=== PATIENT | male | born 1940 | race Caucasian/White ===

== ENCOUNTER 2019-12-16 12:13 | Emergency (ER) | payer MEDICARE ==
[~2019-12-16] VITALS: Ht 177.8 cm; Wt 122.0 kg
[2019-12-16 12:25] VITALS: BP 160/73
[2019-12-16] MEDS ORDERED: ASPIRIN 325 MG TABLET PO ONE (12:30)
--- NOTE | 2019-12-16 12:48 | RAD ---
PORTABLE CHEST 1V History: Reason: SOA / Spl. Instructions: / History: Comparison: None. Findings: No consolidation or pleural effusion. Normal heart size. No pneumothorax. Prior median sternotomy. Bilateral glenohumeral DJD. Impression: 1. No acute cardiopulmonary process. Electronically signed by: Chong Dixon DO (12/16/2019 12:45 PM) [id number]
--- NOTE | 2019-12-16 12:56 | PHYS DOC ---
Past History Past Medical History: CAD, COPD, Hypertension Past Surgical History: Coronary Bypass Surgery, Other Additional Past Surgical Histo: knees Alcohol Use: None General Adult EDM: Chief Complaint: SHORTNESS OF BREATH HPI: HPI: Marina Patel is an 79-year-old male with an extensive cardiac history who presents with shortness of breath. He states that this is been a chronic issue for him that was worse this morning. 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 He denies lower extremity swelling, fever, chills, headache, palpitations, abdominal pain, nausea, vomiting, and bowel and urinary complaints. Patient affirms intermittent chest pain that does not feel similar to his past myocardial infarction history. Patient affirms history of 2 prior MIs with stent placement, and a procedure that placed 6 bypasses in 1999. He follows with a wood turning lathe operator twice every year who has asked him if he thought that he needed oxygen. While he states that he has felt that he needs oxygen for some time now he has told the provider know because he does not want the burden of the treatment. The patient states that he takes an unknown diuretic, likely Lasix, every morning. He is good about taking this medication every day. He denies significant change in weight. Patient denies smoking history. Review of Systems: Review of Systems: Constitutional: Denies fever, chills, and weight change Eyes: Denies redness or eye pain HENT: Denies nasal congestion or sore throat Respiratory: Denies cough; affirms shortness of breath Cardiovascular: Denies palpitations; affirms chest pain GI: Denies abdominal pain, nausea, or vomiting : Denies dysuria or hematuria Musculoskeletal: Denies back pain or joint pain Integument: Denies rash or skin lesions Neurologic: Denies headache, focal weakness or sensory changes Complete systems were reviewed and found to be within normal limits, except as documented in this note. Heart Score: HEART Score for Chest Pain: HEART Score for Chest Pain Response (Comments) Value History Moderately Suspicious 1 ECG Normal 0 Age > 65 2 Risk Factors >3 Risk Factors or Hx CAD 2 Total 5 Risk Factors: Risk Factors: DM, Current or recent (<one month) smoker, HTN, HLP, family history of CAD, obesity. Risk Scores: Score 0 - 3: 2.5% MACE over next 6 weeks - Discharge Home Score 4 - 6: 20.3% MACE over next 6 weeks - Admit for Clinical Observation Score 7 - 10: 72.7% MACE over next 6 weeks - Early Invasive Strategies Current Medications: Current Meds: Current Medications Medications (Trade) Dose Ordered Sig/Elvin Start Time Stop Time Status Last Admin Dose Admin Aspirin (Aj Aspirin) 325 mg 1X ONCE 12/16/19 12:30 12/16/19 12:31 DC Allergies: Allergies: Allergies Coded Allergies Type Severity Reaction Last Updated Verified No Known Drug Allergies 12/16/19 No Physical Exam: PE: Constitutional: Well developed, well nourished, no acute distress, non-toxic appearance HENT: Normocephalic, atraumatic Eyes: PERRL, EOMI, conjunctiva normal, no discharge Neck: Normal range of motion, no tenderness, supple Cardiac: Regular rate rhythm, no murmur Lungs & Thorax: No respiratory distress, equal chest rise and fall, coarse breath sounds in lower lung cook bilaterally Abdomen: Soft, no tenderness Skin: Warm, dry, no erythema, no rash Back: No tenderness, no CVA tenderness Extremities: No tenderness, ROM intact, 1+ lower extremity edema Neurologic: Alert and oriented X 3, normal motor function, normal sensory fu nction, no focal deficits noted Psychologic: Affect normal, judgment normal Current Patient Data: Vital Signs: Vital Signs Date Time Temp Pulse Resp B/P (MAP) Pulse Ox O2 Delivery O2 Flow Rate FiO2 12/16/19 12:25 98.2 78 16 160/73 (102) 95 Room Air EKG: EKG: @ 12:42 Sinus rhythm at [address] elevation or depression T waves are inconsistent, but do not appear pathologic Frequent PVCs Radiology/Procedures: Radiology/Procedures: PORTABLE CHEST 1V History: Reason: SOA / Spl. Instructions: / History: Comparison: None. Findings: No consolidation or pleural effusion. Normal heart size. No pneumothorax. Prior median sternotomy. Bilateral glenohumeral DJD. Impression: 1. No acute cardiopulmonary process. Electronically signed by: Chong Dixon DO (12/16/2019 12:45 PM) [id number] Course & Med Decision Making: Course & Med Decision Making Pertinent Labs and Imaging studies reviewed. (See chart for details) [] Dragon Disclaimer: Dragon Disclaimer: This electronic medical record was generated, in whole or in part, using a voice recognition dictation system. Departure Departure: Impression: Primary Impression: Dyspnea Qualified Codes: R06.00 - Dyspnea, unspecified Disposition: HOME/RESIDENCE PRIOR TO ADM Condition: STABLE Referrals: MIGUEL VAN MD (PCP) Patient Instructions: Shortness of Breath, [id number] Additional Instructions: You have been tested for or diagnosed with COVID-19. It is an infection caused by a new type of coronavirus. COVID-19 will cause cold-like or mild flu symptoms in most. It can cause more severe symptoms like problems breathing in some. There is no treatment for COVID-19. The body will clear the infection over time. Self-care will help to ease discomfort. Steps to Take: Self-Care Rest as needed. Healthy habits may help you feel better. Steps include: Choose healthy foods including fruits and vegetables. Drink water throughout the day. Get plenty of sleep each night. If you smoke, try to quit. It may ease breathing. Avoid alcohol. Keep Others Healthy The virus can spread to others. Droplets are released every time you sneeze or cough. The droplets can get into the mouth, nose, or eyes of people near you and lead to infection. To lower the chances of spreading COVID-19 to others: Stay at home until your doctor has said it is safe to leave. If you tested positive this will mean staying isolated until both of the following are true: At least 7 days have passed since the start of illness. You are free of fever for at least 72 hours without the use of medicine. During this time: - Avoid public areas, events, or transportation. Do not return to work or school until your doctor has said it is safe to do so. - Call ahead if you need to go to a medical center. Let them know you may have COVID-19. It will help them guide you where to go. They may also ask you to wear a facemask when you come to the office. - If you call for emergency medical services, let them know you may have COVID- 19. While at home: - Try to avoid close contact with others. Stay about 6 feet away. - If possible, spend most of your time in a separate room from others. - Use a face mask if you will be in close contact with others such as sharing a room or vehicle. - Have someone wipe down common surfaces in the home. Use household healthcare business analyst every day on areas like doorknobs, counters, or sinks. - Cough or sneeze into a tissue. Throw the tissue away right after use. If a tissue is not available, cough or sneeze into your elbow. - Wash your hands often. Wash them after sneezing or coughing. Use soap and water and wash for at least 20 seconds. Alcohol based hand vehicle and equipment cleaner can be used if soap and water is not available. - Do not prepare food for others. Avoid sharing personal items like forks, spoons, or toothbrushes. - Avoid close contact with pets while you are sick. There is no evidence of the virus passing to pets. This is a safety step until more is known about this virus. Isolation can be frustrating. Social interaction can help. Keep in touch with friends and family through phone and tech options. You can still interact with others in your home, just keep a safe distance of about 6 feet. Follow-up: Your doctors office will check in with you to see if there are any changes in your health. You may be asked to keep track of symptoms to share with them. They will also let you know when you are clear to be in public again. Problems to Look Out For: Contact your doctor if your recovery is not going as you expect. Get emergency care if you have problems such as: - Trouble breathing - Nonstop chest pain or pressure - Changes in awareness, confusion, or problems waking - Lips or face have bluish color - Worsening of symptoms If you think you have an emergency, call for emergency medical services right away. As taken from [facility] [place] ANASTASIA Dos Santos DO Dec 16, 2019 12:56
[2019-12-16 13:17] LABS: CALCIUM 8.8 mg/dL (8.5-10.1); CREATININE 1.1 mg/dL (0.7-1.3); GFR 64.2; POTASSIUM 3.7 mmol/L (3.5-5.1)
[2019-12-16 13:39] LABS: BASO % 0 % (0-3); EOS % 0 % (0-3); HEMATOCRIT 48.8 % (39.0-53.0); HEMOGLOBIN 16.2 g/dL (13.0-17.5); LYMPH # 1.4 x10^3/uL (1.0-4.8); LYMPH % 20 % (24-48); MEAN CORPUSCULAR HEMOGLOBIN 30 pg (25-35); MEAN CORPUSCULAR HGB CONC 33 g/dL (31-37); MEAN CORPUSCULAR VOLUME 92 fL (79-100); MONO # 0.5 x10^3/uL (0.0-1.1); MONO % 7 % (0-9); NEUT # 5.3 x10^3uL (1.8-7.7); NEUT % 73 % (31-73); RED BLOOD COUNT 5.34 x10^6/uL (4.30-5.70); RED CELL DISTRIBUTION WIDTH 13.7 % (11.5-14.5); WHITE BLOOD COUNT 7.2 x10^3/uL (4.0-11.0)
[2019-12-16 13:46] LABS: ALBUMIN 3.7 g/dL (3.4-5.0); ALBUMIN/GLOBULIN RATIO 1.2 (1.0-1.7); TOTAL BILIRUBIN 1.1 mg/dL (0.2-1.0); TOTAL PROTEIN 6.8 g/dL (6.4-8.2)
[2019-12-16 14:04] LABS: PLATELET COUNT 87 x10^3/uL (140-400)
[2019-12-16 14:37] LABS: PLT ESTIMATE DECREASED (ADEQUATE)
[2019-12-16] MEDS ORDERED: DEXAMETHASONE 4 MG TABLET PO ONE (15:15)
--- NOTE | 2019-12-16 21:06 | EKG ---
[address] [address] Test Date: 2019-12-16 Test Time: 12:42:26 Pat Name: CAROLINA JOSE Department: Room: Gender: M Engineering Lab Technician: JOHN : 1940 Requested By: ANASTASIA HUSSEIN Order Number: [id number] Reading MD: Measurements Intervals Melber Rate: 86 P: 0 WA: 84 QRS: -2 QRSD: 108 T: 68 QT: 378 QTc: 455 Interpretive Statements SINUS RHYTHM COMPLEX(ES) WITH ABERRANT INTRAVENTRICULAR CONDUCTION VENTRICULAR PREMATURE COMPLEX(ES) LEFTWARD AXIS R-S TRANSITION ZONE IN V LEADS DISPLACED TO THE LEFT QRS(T) CONTOUR ABNORMALITY CONSISTENT WITH INFERIOR INFARCT PROBABLY OLD T ABNORMALITY IN HIGH LATERAL LEADS ABNORMAL ECG RI6.02 No previous ECG available for comparison
--- NOTE | 2019-12-18 15:51 | NUR ---
IP: notified patient of COVID result.
== END 2019-12-16 15:31 | disposition home or self-care (01) ==
LOC: ER 12:13
DX: R06.02 Shortness of breath (principal); R07.89 Other chest pain; I25.810 Atherosclerosis of coronary artery bypass graft(s) without angina pectoris; J44.9 Chronic obstructive pulmonary disease, unspecified; I10 Essential (primary) hypertension; Z20.828 Contact with and (suspected) exposure to other viral communicable diseases
CPT/HCPCS: 36415; 71045; 80053; 82553; 83605; 83690; 83735; 83880; 84484; 85025; 85610; 85730; 93005; 99285; J8540; U0003